=== PATIENT | male | born 1985 | race Caucasian/White ===

== ENCOUNTER 2023-06-19 02:07 | Day surgery (SDC) | payer OTHER, SELFPAY ==
[2023-06-17 12:02] VITALS: BMI 34.0
--- NOTE | 2023-06-17 12:07 | PC.NURSE ---
Report to the Outpatient Waiting Room, entrance under the green pavilion located off [facility], at time 0630 on date 06/19/23. Planned Procedure Time: 0830. Time changes happen often and if your time is changed the preop area will call you the afternoon before. - You and your visitor will be asked to self-screen and do not enter if you have any COVID symptoms. - A mask is optional within the hospital at this time. Patients may have clear liquids (water, carbonated beverages, clear teas, apple juice) until 3 hours prior to surgery with a maximum of 20 ounces. - No food from midnight until time of surgery Take the following medications with a SIP of water the morning of surgery: PAIN PILL DO NOT STOP ANY OF YOUR OTHER PRESCRIPTION MEDICATIONS PRIOR TO SURGERY ?EXCEPT THE FOLLOWING Medications to discontinue per physician: N/A Date to take last dose: N/A Please no make-up, nail georgian, hairspray, perfume, deodorant, or body powder the day of surgery. No jewelry (including any body piercings) or valuables the day of surgery, leave them at home. Please take a shower or bath the night before, or the morning of, surgery with an antibacterial soap. Wear comfortable, loose fitting clothing. - Jewelry must be removed prior to entering the operating room. Rings and piercings that are not removed may be cut off. - The hospital will not accept responsibility for valuables. - Please leave all valuables, including medications, at home the day of surgery. If you are going home after surgery, a licensed pile driver operator barge mounted must drive you home. - NO public transportation without another adult if you receive anesthesia. - We recommend that an adult stay with you for 24 hours following discharge. - We also recommend that you do not drive, make important decision, drink alcoholic beverages, or take any drugs that were not prescribed by your health care provider for at least 24 hours after your discharge time. Follow any additional instructions given to you from your surgeon. If you or anyone in your household have experienced Covid symptoms in the past week, please notify your surgeon or the nurse liaison at the phone number below for possible testing. Telephone instructions given to PT - CHAIM and asked if any additional questions and then verbalized understanding. Patient advised to call surgeon office or pre surgery nurse liaison [phone] if any additional questions.
--- NOTE | 2023-06-17 12:43 | PM.IMHP ---
H&P: HPI History of Present Illness Date/Time: 06/17/23 12:43 Chief Complaint: Patient is a trimalleolar ankle fracture right. Review of Systems Musculoskeletal: Musculoskeletal: Reports arthralgias and Reports joint swelling [facility] Family History Family History (Updated 06/17/23 @ 09:23 by Enedelia Cameron CMA) Other Cancer Heart disease Social History Social History (Updated 06/17/23 @ 09:24 by Enedelia Cameron CMA) Smoking packs per day: 0.5 Smoking cigarettes per day: 10.0 Years smoked: 20 Smoking pack-years: 10.00 Smoking status: Current every day smoker Tobacco type: cigarettes Alcohol intake: current Alcohol use details: 2/MONTH Substance use: never Substance use type: does not use Do You Feel Safe in your Home?: Yes Lack of Transportation: No Lack of Food: Never True Current Housing: I Have Housing Concerned About Future Housing: No Difficulty Paying Gas/Electric Bills: No Difficulty Paying for Meds: No Currently Unemployed: No Education: Trade/Vocational Certificate Difficulty w/ Childcare or Family Care: No Living arrangements: with family Occupation/Education: occupation Additional occupation/education comments: field underwriter Spiritual care concerns: No Meds Home Medications and Allergies Home Medications Medication Instructions Recorded Confirmed Type hydrocodone 5 mg-acetaminophen 300 1 tablet PO QHS PRN pain #30 tabs 06/17/23 06/17/23 Rx mg tablet Allergies Allergy/AdvReac Type Severity Reaction Status Date / Time No Known Allergies Allergy Verified 06/17/23 12:01 Exam Narrative: On exam he can wiggle his toes he is comfortable in a splint. He has got mild swelling. He is unable to bear weight on his leg. Eyes: General: appearance normal, both eyes and all related structures Neck: Neck: supple Resp: Effort & Inspection: normal respiratory effort Cardio: Rate: regular rate Rhythm: regular rhythm No Data to Display Assessment and Plan Assessment and plan (1) Trimalleolar fracture of right ankle: Code(s): S82.851A - Displaced trimalleolar fracture of right lower leg, initial encounter for closed fracture Status: Acute Assessment and Plan: Patient is displaced trimalleolar ankle fracture right. I recommended open reduction internal fixation. I have discussed risks benefits limitations and alternatives with the patient in detail. Will proceed per his request. Patient understands and agrees.
[2023-06-19] VITALS (10 sets, daily range): BP systolic 114–148; BP diastolic 71–88; PULSE 72–87; RESP 14–20; TEMP 36.6–36.8; O2SAT 96–100
--- NOTE | ~2023-06-19 | XR_ITS ---
EXAMINATION: XR surgery orthopedic DATE: 06/19/2023 09:44 INDICATION: ORIF right ankle fracture TECHNIQUE: 2 fluoroscopic images of the right ankle were obtained during procedure performed by Dr. Yuliet damon. Radiologist was not present for the imaging or procedure. The amount of fluoroscopy time use d during this procedure was 0.7 minutes. COMPARISON: 06/09/2023 FINDINGS: Interval open reduction internal fixation of the previous noted trimalleolar fracture of the right an kle. The medial malleolar fractures fixed with a cannulated lag screw. The lateral malleolar fracture s fixed with interfragmentary screw and lateral plate and screw fixation. There is also a syndesmotic fixation with metallic buttons along either side of a lucent tract extending across the metaphyseal regions of the distal tibia and fibula. The posterior malleolar fracture remains unfixed. Alignment n ow appears essentially anatomic with congruent ankle mortise. No new fractures identified. IMPRESSION: 1. Near-anatomic alignment post open reduction internal fixation of a trimalleolar fracture of the ri ght ankle. Reviewed, dictated and finalized at location A. IMPRESSION: 1. Near-anatomic alignment post open reduction internal fixation of a trimalleo lar fracture of the right ankle.
[2023-06-19] MEDS: ACETAMINOPHEN 500 MG TABLET 1000 MG PO (06:50)
[2023-06-19] MEDS: KETOROLAC 15 MG/ML VIAL (*BKC) IV PUSH (07:19)
[2023-06-19] MEDS: LACTATED RINGERS 1,000 ML 30 ML IV CONT ×3 (07:19→11:59)
--- NOTE | 2023-06-19 07:45 | WPDANESEPPF ---
Anes - Initial Pre Proc Eval Procedure: Operation Date: 06/19/23 08:30 Proposed Procedures p Open Reduction Internal Fixation of Right Ankle - Lefty Daniel MD Date/Time: 06/19/23 07:45 Surgeon: Lefty Daniel MD Pre Op Diagnosis: right ankle fracture Patient Data Age: 37 Gender: M Height: 1.88 m Weight: 118 kg Last Vital Signs Temp 36.8 C 06/19/23 07:14 Pulse 85 06/19/23 07:14 Resp 16 06/19/23 07:14 BP 129/85 06/19/23 07:14 Pulse Ox 98 06/19/23 07:14 O2 Del Method Room Air 06/19/23 07:14 Allergies Allergy/AdvReac Type Severity Reaction Status Date / Time No Known Allergies Allergy Verified 06/19/23 06:50 Home Medications Medication Instructions Recorded Confirmed Type hydrocodone 5 mg-acetaminophen 300 1 tablet PO QHS PRN pain #30 tabs 06/17/23 06/19/23 Rx mg tablet hydrocodone 5 mg-acetaminophen 325 1 tablet PO Q4H PRN pain #30 tabs 06/18/23 Rx mg tablet Patient hx anesthesia problems: none Family hx anesthesia problems: none Results Review: All pre-operative results and documents have been reviewed as part of the pre-operative evaluation. [facility] Past Medical History Medical History Smoker Family History Family History Other Cancer Heart disease Social History Social History Smoking packs per day: 0.5 Smoking cigarettes per day: 10.0 Years smoked: 20 Smoking pack-years: 10.00 Smoking status: Current every day smoker Tobacco type: cigarettes Alcohol intake: current Alcohol use details: 2/MONTH Substance use: never Substance use type: does not use Do You Feel Safe in your Home?: Yes Lack of Transportation: No Lack of Food: Never True Current Housing: I Have Housing Concerned About Future Housing: No Difficulty Paying Gas/Electric Bills: No Difficulty Paying for Meds: No Currently Unemployed: No Education: Trade/Vocational Certificate Difficulty w/ Childcare or Family Care: No Living arrangements: with family Occupation/Education: occupation 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 Informed Consent: The patient's anesthetic plan and its attendant risks and benefits were discussed with the patient/family/POA. Questions were solicited and answers provided to the satisfaction of the patient/family/POA.
--- NOTE | 2023-06-19 07:47 | WPDHPUPDATE1 ---
History and Physical Update Update Date/Time: 06/19/23 07:47 History and Physical has been reviewed, including an updated exam of the patient. There are NO changes in the patient's condition. Risks, benefits, and alternatives have been discussed and questions answered. Patient agrees to proceed with procedure.
[2023-06-19] MEDS: ceFAZolin 2 GM/D5W 50 ML 2 GM/50 ML BAG IVPB (08:23)
--- NOTE | 2023-06-19 09:49 | P.OP_ITS ---
Procedure Note - Detailed Date of Procedure 06/19/23 Pre-op Diagnosis Trimalleolar fracture right ankle Post-op Diagnosis Same Procedure Performed Open reduction internal fixation bimalleolar components. Fibula and medial malleolus with syndesmosis Fixation using a Tightrope Surgeon Lefty Daniel MD [employer] Carline Anesthesia General Indications Displaced trimalleolar ankle fracture Description of Procedure Patient was brought to operating room #8. A general anesthetic was administered. She was sterilely prepped and draped in usual manner. I began with a lateral incision. Dissection carried down to fracture. The fracture was reduced and held with a lobster claw. A 6 hole plate placed with an interfragmentary screw. This gave excellent alignment and fixation of the fracture. I then proceeded medially. Dissection was carried down to the medial malleolus. There was just a small fragment of the medial malleolus off. This was held reduced and secured with a for 4-0 cannulated screw 40 millimeters in length. X-rays in the AP little mortise view demonstrated near anatomic alignment of the ankle. There is a little bit of widening with inversion , hence I placed a tight rope for repair of the syndesmosis. At this point the ankle was very stable. The wound irrigated and closed with 2-0 Vicryl and unique. Sterile dressing applied. The patient placed in a cam walker boot. Implants TIGHTROPE Estimated Blood Loss 20 Complications No immediate complications Disposition PACU [facility] Billing Surgery - Charge Forward: Surgery Billing (Trimalleolar Ankle FX. [id number] Fixation Bimalleolar components)
[2023-06-19] MEDS: fentaNYL CITRATE INJ (*CRX) 100 MCG/2 ML VIAL 25 MCG IV PUSH ×8 (10:17→10:31)
[2023-06-19] MEDS: ONDANSETRON INJ 4 MG/2 ML VIAL IV PUSH (10:20)
[2023-06-19] MEDS: HYDROmorphone HCL INJ (*CRX) 1 MG/ML SYR 0.5 MG IV PUSH ×3 (10:33→11:55)
[2023-06-19] MEDS: diphenhydrAMINE HCl INJ 50 MG/ML VIAL 25 MG IV PUSH (11:55)
== END 2023-06-19 12:35 | disposition home or self-care (01) ==
PROVIDERS: Visit Provider Orthopaedic Surgery
PROC: (CPT 27814; principal; 2023-06-19 08:30)
DX: S82.851A Displaced trimalleolar fracture of right lower leg, initial encounter for closed fracture (principal); S93.431A Sprain of tibiofibular ligament of right ankle, initial encounter; X58.XXXA Exposure to other specified factors, initial encounter; Y92.9 Unspecified place or not applicable; Y99.0 Civilian activity done for income or pay; F17.210 Nicotine dependence, cigarettes, uncomplicated; E66.9 Obesity, unspecified; Z68.33 Body mass index [BMI] 33.0-33.9, adult
CPT/HCPCS: 27814; 27829; 99199; A9270; C1713; C1769; J0690; J1170; J1200; J1885; J2250; J2405; J3010; J7120

== ENCOUNTER 2023-09-09 17:43 | Outpatient (NON) | payer OTHER, SELFPAY | END 2023-09-09 17:44 | disposition home or self-care (01) | LOC: HOME HLTH 17:45 | PROVIDERS: Visit Provider Orthopaedic Surgery | DX: T81.49XA Infection following a procedure, other surgical site, initial encounter (principal) | CPT/HCPCS: 87070; 87075; 87205 ==

== ENCOUNTER 2023-11-05 00:43 | Day surgery (SDC) | payer OTHER, SELFPAY ==
[2023-11-04 09:38] VITALS: BMI 34.1
--- NOTE | 2023-11-04 09:39 | PC.NURSE ---
Report to the Outpatient Waiting Room, entrance under the green pavilion located off [facility], at time _0930_ on date _[phone]_. Planned Procedure Time: _1130_. Time changes happen often and if your time is changed the preop area will call you the afternoon before. - You and your visitor will be asked to self-screen and do not enter if you have any COVID symptoms. - A mask is optional within the hospital at this time. Patients may have clear liquids (water, carbonated beverages, clear teas, apple juice) until 3 hours prior to surgery with a maximum of 20 ounces. - No food from midnight until time of surgery Take the following medications with a SIP of water the morning of surgery: ____Cephalexin DO NOT STOP ANY OF YOUR OTHER PRESCRIPTION MEDICATIONS PRIOR TO SURGERY ?EXCEPT THE FOLLOWING Medications to discontinue per physician None Date to take last dose Please no make-up, nail russian, hairspray, perfume, deodorant, or body powder the day of surgery. No jewelry (including any body piercings) or valuables the day of surgery, leave them at home. Please take a shower or bath the night before, or the morning of, surgery with an antibacterial soap. Wear comfortable, loose fitting clothing. - Jewelry must be removed prior to entering the operating room. Rings and piercings that are not removed may be cut off. - The hospital will not accept responsibility for valuables. - Please leave all valuables, including medications, at home the day of surgery. If you are going home after surgery, a licensed transport truck driver must drive you home. - NO public transportation without another adult if you receive anesthesia. - We recommend that an adult stay with you for 24 hours following discharge. - We also recommend that you do not drive, make important decision, drink alcoholic beverages, or take any drugs that were not prescribed by your health care provider for at least 24 hours after your discharge time. Follow any additional instructions given to you from your surgeon. If you or anyone in your household have experienced Covid symptoms in the past week, please notify your surgeon or the nurse liaison at the phone number below for possible testing. Telephone instructions given to ___Marc____and asked if any additional questions and then verbalized understanding. Patient advised to call surgeon office or pre surgery nurse liaison [phone] if any additional questions.
--- NOTE | 2023-11-04 12:06 | P.HP_ITS ---
H&P: HPI History of Present Illness Date/Time: 11/04/23 12:06 Chief Complaint: Patient underwent open reduction internal fixation of his right ankle he has developed a superficial infection and appears in gone deep to the plate. We talked about hardware removal and he like to have this done. Review of Systems Musculoskeletal: Musculoskeletal: Reports arthralgias, Reports joint swelling and Reports stiffness PMFSH Past Medical History Medical History Smoker Trimalleolar fracture of right ankle Surgical History Surgical History History of ankle surgery Family History Family History (Updated 10/21/23 @ 13:14 by TESFAYE Lozoya) Father Gout Mother Diabetes mellitus Sibling No problems noted. Other Cancer Heart disease Social History Social History (Updated 10/21/23 @ 13:15 by TESFAYE Lozoya) Smoking packs per day: 0.5 Smoking cigarettes per day: 10.0 Years smoked: 20 Smoking pack-years: 10.00 Smoking status: Current every day smoker Tobacco type: cigarettes Second hand tobacco smoke exposure: No Alcohol intake: current Alcohol use details: 2/MONTH Substance use: never Substance use type: does not use Do You Feel Safe in your Home?: Yes Lack of Transportation: No Lack of Food: Never True Current Housing: I Have Housing Concerned About Future Housing: No Difficulty Paying Gas/Electric Bills: No Difficulty Paying for Meds: No Currently Unemployed: No Education: Trade/Vocational Certificate Difficulty w/ Childcare or Family Care: No Living arrangements: with family Occupation/Education: occupation Additional occupation/education comments: [employer] Gender identity (if verbalized by the patient): Male Spiritual care concerns: No Meds Home Medications and Allergies Home Medications Medication Instructions Recorded Confirmed Type cephalexin 500 mg capsule 500 mg PO Q8H 11/04/23 11/04/23 History Allergies Allergy/AdvReac Type Severity Reaction Status Date / Time No Known Allergies Allergy Verified 11/04/23 09:32 Exam Narrative: On exam he is tender laterally has some redness with an open wound of about a centimeter and a centimeter and half. He has got a little soupiness in that area. Neurologically he can wiggle his toes and move his ankle up and down. He has mild swelling about the ankle. Eyes: General: appearance normal, both eyes and all related structures Neck: Neck: supple Resp: Effort & Inspection: normal respiratory effort Cardio: Rate: regular rate Rhythm: regular rhythm Assessment and Plan Assessment and plan (1) Superficial incisional infection of surgical site: Code(s): T81.41XA - Infection following a procedure, superficial incisional surgical site, initial encounter Status: Acute Assessment and Plan: Patient has a surgical site infection of the right ankle at this point he has failed at conservative treatment we have discussed removal of the hardware least laterally. I have discussed this with him risks benefits limitations and alternatives. Will proceed his request. We will also probably take out the syndesmosis tight rope.
--- NOTE | ~2023-11-05 | XR_ITS ---
EXAMINATION: XR surgery orthopedic DATE: 11/05/2023 12:55 INDICATION: Right ankle hardware removal. TECHNIQUE: 3 intraoperative spot fluoroscopic views of right ankle were obtained. I was not present. Fluoroscopy exposure time was 26 seconds. COMPARISON: Right ankle radiographs 10/21/2023 FINDINGS: Images demonstrate removal of the plate and screws from distal fibula and the tibiofibular syndesmosis band. There is an ununited transverse fracture of medial malleolus with internal fixation with a lag screw. IMPRESSION: 1. Removal of the plate and screws from distal fibula and the tibiofibular syndesmosis band. 2. Ununited transverse fracture of medial malleolus with internal fixation with a lag screw. Reviewed, dictated and finalized at location A. IMPRESSION: 1. Removal of the plate and screws from distal fibula and the tibiofibular synd esmosis band. 2. Ununited transverse fracture of medial malleolus with internal fixation with a lag screw.
[2023-11-05 09:32] VITALS: BP 147/82; PULSE 80; RESP 16; TEMP 36.4; O2SAT 99
[2023-11-05] MEDS: ACETAMINOPHEN 500 MG TABLET 1000 MG PO (10:00)
[2023-11-05] MEDS: LACTATED RINGERS 1,000 ML 30 ML IV CONT ×2 (10:05→13:00)
[2023-11-05] MEDS: KETOROLAC 15 MG/ML VIAL (*BKC) IV PUSH (10:10)
--- NOTE | 2023-11-05 10:23 | WPDHPUPDATE1 ---
History and Physical Update Update Date/Time: 11/05/23 10:23 History and Physical has been reviewed, including an updated exam of the patient. There are NO changes in the patient's condition. Risks, benefits, and alternatives have been discussed and questions answered. Patient agrees to proceed with procedure.
--- NOTE | 2023-11-05 11:23 | WPDANESEPPF ---
Anes - Initial Pre Proc Eval Procedure: Operation Date: 11/05/23 11:30 Proposed Procedures p Removal Hardware Right Ankle, - Lefty Daniel MD s Incision and Drainage Right Ankle - Lefty Daniel MD Date/Time: 11/05/23 11:23 Surgeon: Lefty Daniel MD Pre Op Diagnosis: infected right ankle Patient Data Age: 37 Gender: M Height: 1.88 m Weight: 111.8 kg Last Vital Signs Temp 97.5 F L 11/05/23 09:32 Pulse 80 11/05/23 09:32 Resp 16 11/05/23 09:32 BP 147/82 H 11/05/23 09:32 Pulse Ox 99 11/05/23 09:32 O2 Del Method Room Air 11/05/23 09:32 Allergies Allergy/AdvReac Type Severity Reaction Status Date / Time No Known Allergies Allergy Verified 11/04/23 09:32 Home Medications Medication Instructions Recorded Confirmed Type cephalexin 500 mg capsule 500 mg PO Q8H 11/04/23 11/04/23 History Patient hx anesthesia problems: post op nausea/vomiting Family hx anesthesia problems: none Results Review: All pre-operative results and documents have been reviewed as part of the pre-operative evaluation. [facility] Past Medical History Medical History Smoker Trimalleolar fracture of right ankle Surgical History Surgical History History of ankle surgery Family History Family History (Updated 10/21/23 @ 13:14 by TESFAYE Lozoya) Father Gout Mother Diabetes mellitus Sibling No problems noted. Other Cancer Heart disease Social History Social History (Updated 10/21/23 @ 13:15 by TESFAYE Lozoya) Smoking packs per day: 0.5 Smoking cigarettes per day: 10.0 Years smoked: 20 Smoking pack-years: 10.00 Smoking status: Current every day smoker Tobacco type: cigarettes Second hand tobacco smoke exposure: No Alcohol intake: current Alcohol use details: 2/MONTH Substance use: never Substance use type: does not use Do You Feel Safe in your Home?: Yes Lack of Transportation: No Lack of Food: Never True Current Housing: I Have Housing Concerned About Future Housing: No Difficulty Paying Gas/Electric Bills: No Difficulty Paying for Meds: No Currently Unemployed: No Education: Trade/Vocational Certificate Difficulty w/ Childcare or Family Care: No Living arrangements: with family Occupation/Education: occupation Additional occupation/education comments: [employer] Gender identity (if verbalized by the patient): Male Spiritual care concerns: No Anes - Eval Final PreProcedure Day of Procedure 11/05/23 11:23 Patient weight: obese Heart: regular rate and rhythm Lungs: clear to auscultation Airway: Mallampati scale class II Neurological: alert and oriented Last oral intake: >/= 8 hours ASA classification: II Emergent: no Anesthetic plan: proceed Anesthesia type and monitoring: general LMA and standard monitoring Results Review: All pre-operative results and documents have been reviewed as part of the pre-operative evaluation. Informed Consent: The patient's anesthetic plan and its attendant risks and benefits were discussed with the patient/family/POA. Questions were solicited and answers provided to the satisfaction of the patient/family/POA.
[2023-11-05] MEDS: ceFAZolin 2 GM/D5W 50 ML 2 GM/50 ML BAG IVPB (11:51)
--- NOTE | 2023-11-05 12:24 | W.PM.PROC2 ---
Procedure Note - Detailed Date of Procedure 11/05/23 Pre-op Diagnosis Superficial wound infection right ankle. Post-op Diagnosis Same Procedure Performed Removal hardware right ankle and irrigation debridement Surgeon Lefty Daniel MD Automobile Assembly Supervisor Evan Chahal Anesthesia General Indications Superficial Wound Infection Description of Procedure Patient brought to operating room 7. A general anesthetic was administered. He was placed on the operating table. The leg was sterilely prepped and draped in usual manner. I began medially and with the help of the C-arm found the end of the tightrope anchor. Small incision was made over this about a centimeter length and dissection carried down and sutures cut. The anchor was removed. I then proceeded to open the wound laterally. And cultures were taken. The screws were removed as well as the tightrope. At this point x-rays were taken in the AP and mortise plane demonstrate excellent alignment of the ankle. The bones appear to have been healed. I did leave the medial screw in through the medial malleolus is was not close any area of infection and was holding what appeared to be a delayed her fibrous union of the medial malleolus. The wounds and irrigated again hemostasis obtained and closed with 2-0 Vicryl and a 3-0 Prolene. Sterile dressing applied patient tolerated procedure well. Estimated Blood Loss 20 Drains No Packing No Pathology None sent Complications No immediate complications Condition Stable Disposition PACU [facility] Billing Surgery - Charge Forward: Surgery Billing ([id number] Hardware Removal [id number] I & D)
--- NOTE | 2023-11-05 12:25 | SUR.OPER ---
Culture Given to Saurabh CARDONA who gave it to Tiffany in the lab
[2023-11-05 13:00] VITALS: BP 128/87; PULSE 87; RESP 16; TEMP 36.3; O2SAT 100
[2023-11-05 13:15] VITALS: BP 138/80; PULSE 65; RESP 15; O2SAT 99
[2023-11-05] MEDS: fentaNYL CITRATE INJ (*CRX) 100 MCG/2 ML VIAL 25 MCG IV PUSH ×2 (13:20→13:25)
[2023-11-05 13:30] VITALS: BP 123/87; PULSE 68; RESP 13; O2SAT 98
[2023-11-05 13:35] VITALS: BP 147/77; PULSE 70; RESP 16
[2023-11-05] MEDS: oxyCODONE HCL (*CRX) 5 MG TAB IR PO (13:42)
[2023-11-05 14:05] VITALS: BP 129/67; PULSE 63; RESP 20
[2023-11-05 14:05] LABS: Hepatitis B Surface Antigen Negative (Negative)
[2023-11-05 14:22] LABS: HIV 1/2 Ab P24 Ag Result Negative (Negative); Hepatitis C Virus Antibody Negative (Negative)
== END 2023-11-05 14:15 | disposition home or self-care (01) ==
PROVIDERS: Visit Provider Orthopaedic Surgery
PROC: (CPT 20680; principal; 2023-11-05 11:30)
PROC: (CPT 20680; 2023-11-05 11:30)
DX: T81.41XA Infection following a procedure, superficial incisional surgical site, initial encounter (principal); L08.9 Local infection of the skin and subcutaneous tissue, unspecified; S82.851D Displaced trimalleolar fracture of right lower leg, subsequent encounter for closed fracture with routine healing; X58.XXXD Exposure to other specified factors, subsequent encounter; Y83.8 Other surgical procedures as the cause of abnormal reaction of the patient, or of later complication, without mention of misadventure at the time of the procedure; F17.210 Nicotine dependence, cigarettes, uncomplicated; E66.9 Obesity, unspecified; Z68.31 Body mass index [BMI] 31.0-31.9, adult; Z11.4 Encounter for screening for human immunodeficiency virus [HIV]
CPT/HCPCS: 20680; 36415; 86703; 86803; 87070; 87075; 87205; 87340; 99199; A9270; G0432; J0690; J1100; J1885; J2250; J2405; J2704; J3010; J7120